=== PATIENT | female | born 1965 | race Caucasian/White ===

== ENCOUNTER 2018-03-17 20:03 | Emergency (ER) | payer OTHER ==
--- NOTE | 2018-03-17 20:22 | EDPHY ---
H & P Stated Complaint: syncopy Time Seen by Provider: 03/17/18 20:21 - Personal History LMP (Females 10-55): Irregular Current Tetanus/Diphtheria Vaccine: Yes Current Tetanus Diphtheria and Acellular Pertussis (TDAP): Yes - Medical/Surgical History Hx Asthma: No Hx Chronic Respiratory Disease: No Hx Diabetes: No Hx Cardiac Disease: No Hx Renal Disease: No Hx Cirrhosis: No Hx Alcoholism: No Hx HIV/AIDS: No Hx Splenectomy or Spleen Trauma: No Other PMH: anemia - Social History Smoking Status: Never smoked Constitutional: Initial Vital Signs Temperature (C) 36.1 C 03/17/18 20:08 Heart Rate 107 H 03/17/18 20:08 Respiratory Rate 24 H 03/17/18 20:08 Blood Pressure 98/87 H 03/17/18 20:08 O2 Sat (%) 100 03/17/18 20:08 O2 Delivery Mode Room Air Allergies/Adverse Reactions: gluten Allergy (Verified 03/17/18 20:07) Home Medications: Medication Instructions Recorded Synthroid 03/17/18 Medical Decision Making ED Course/Re-evaluation: CHIEF COMPLAINT: Anxiety attack HISTORY OF PRESENT ILLNESS: 52-year-old female who was at a rehearsal dinner. She is new to altitude. She felt lightheaded and dizzy and then an ambulance was called. She had a full-blown panic attack according to her brother long sister her at the bedside. The patient is not very willing to answer many questions and she is somewhat lethargic. However she is alert when I talked to her verbally. She has no complaints whatsoever at this point except feeling tired. REVIEW OF SYSTEMS: A 10 point review of systems was performed and is negative with the exception of the elements mentioned in the history of present illness. PHYSICAL EXAM: HR, BP, O2 Sat, RR. Temp noted General Appearance: Alert, well hydrated, appropriate, and non-toxic appearing. Head: Atraumatic without scalp tenderness or obvious injury Eyes: Pupils equal, round, reactive to light and accommodation, EOMI, no trauma , no injection. Ears: Clear bilaterally, no perforation, normal landmarks Nose: Atraumatic, no rhinorrhea, clear. Throat: There is no erythema or exudates, no lesions, normal tonsils, mucus membranes moist. Neck: Supple, 2+ carotid upstroke, nontender, no lymphadenopathy. Respiratory: No retractions, no distress, no wheezes, and no accessory muscle use. Lungs are clear to auscultation bilaterally. Cardiovascular: Regular rate and rhythm, no murmurs, rubs, or gallops. Bilateral carotid, radial, dorsalis pedis, and posterior tibial pulses intact. Good capillary refill all extremities. Gastrointestinal: Abdomen is soft, nontender, non-distended, no masses, no rebound, no guarding, no peritoneal signs. Musculoskeletal: Normal active ROM of all extremities, atraumatic. Neurological: Alert, appropriate, and interactive. The patient has normal DTRs and non-focal cranial nerves, motor, sensory, and cerebellar exam. Skin: No rashes, good turgor, no nodules on palpation. Past medical history: Several prior anxiety and panic attacks Past surgical history: Noncontributory Family history: Noncontributory Social history: Single, visiting from [place] for her nephew's wedding, does not abuse tobacco drugs or alcohol, employed DIAGNOSTICS/PROCEDURES/CRITICAL CARE TIME: The 12 lead EKG was interpreted by myself. See hard copy and/or "tracemaster" electronic copy for interpretation. Sinus mechanism no ischemia DIFFERENTIAL DIAGNOSIS: The differential diagnosis for the patient's lightheadedness and dizziness included but was not limited to vasovagal syncope , arrhythmia, dehydration, cardiogenic causes, neurogenic causes, and blood loss. MEDICAL DECISION MAKING: This patient had a lightheaded dizzy episode after coming to altitude him being a rehearsal dinner. She then got quite anxious and had a full-blown panic attack with hyperventilation and carpopedal spasm according to her [id number] and sister who are at bedside. Her I-STAT is unremarkable. She has no significant past medical problems except for these panic anxiety attacks. She has had some anemia in the past which is not existent today and not causing the symptoms. I believe her initial lightheadedness and dizziness with potentially secondary to being at altitude and potentially standing up quickly in more of a vasovagal type event. She is asymptomatic. Her EKG is unremarkable. We will send her home keep her hydrated. Departure - Departure Disposition: Home, Routine, Self-Care Clinical Impression: Panic attack Condition: Good Instructions: Anxiety (ED), Panic Attack (ED) Referrals: NONE *PRIMARY CARE P,. [Primary Care Provider] - As per Instructions
--- NOTE | 2018-03-17 20:22 | CPEKG ---
Heart Rate: 102 RR Interval: 588 P-R Interval: 135 QRSD Interval: 128 QT Interval: 324 QTC Interval: 423 P [place]: 81 QRS [place]: 94 T Wave [place]: -66 EKG Severity - ABNORMAL ECG - EKG Impression: SINUS TACHYCARDIA EKG Impression: BIATRIAL ABNORMALITIES EKG Impression: NONSPECIFIC INTRAVENTRICULAR CONDUCTION DELAY EKG Impression: MINIMAL ST DEPRESSION, DIFFUSE LEADS Electronically Signed By: Jose Marques 17-Mar-2018 20:51:03
[2018-03-17] MEDS ORDERED: NS 1,000 ML IV ONE (20:36)
[2018-03-17 21:32] VITALS: BP 139/62
--- NOTE | 2018-03-19 11:01 | CPEKG ---
Heart Rate: 94 RR Interval: 638 P-R Interval: 164 QRSD Interval: 92 QT Interval: 364 QTC Interval: 456 P [place]: 66 QRS [place]: 64 T Wave [place]: 17 EKG Severity - BORDERLINE ECG - EKG Impression: SINUS RHYTHM EKG Impression: BORDERLINE T ABNORMALITIES, ANTERIOR LEADS Electronically Signed By: Jairo Gipson 21-Mar-2018 07:30:03
== END 2018-03-17 21:29 | disposition home or self-care (01) ==
DX: F41.0 Panic disorder [episodic paroxysmal anxiety] (principal)
CPT/HCPCS: 82435-PO; 82565-PO; 82947-PO; 84132-PO; 84295-PO; 84484-PO; 84520-PO; 85014-PO